=== PATIENT | female | born 1980 | race African-American/Black ===

== ENCOUNTER → 2016-12-03 | Outpatient (CLI) | payer BC ==
[2016-12-03 14:43] LABS: ABSOLUTE BASOPHILS # (AUTO) 0.1 10^3/uL (0.0-0.2); ABSOLUTE EOSINOPHILS # (AUTO) 0.2 10^3/uL (0.0-0.6); ABSOLUTE LYMPHOCYTES (AUTO) 2.7 10^3/uL (0.5-4.7); ABSOLUTE MONOCYTES (AUTO) 0.4 10^3/uL (0.1-1.4); ABSOLUTE NEUT (AUTO) 2.9 10^3/uL (1.7-8.2); BASOPHILS % (AUTO) 1.3 % (0-2); EOSINOPHILS % (AUTO) 2.6 % (0-6); HEMATOCRIT 39.1 % (36.0-47.0); HEMOGLOBIN 12.8 g/dL (12.0-15.5); HGB HCT DIFFERENCE -0.7; LYMPHOCYTES % (AUTO) 43.6 % (13-45); MEAN CORPUSCULAR HGB CONC 32.7 g/dL (32.0-36.0); MEAN CORPUSCULAR VOLUME 86 fl (80-97); MONOCYTES % (AUTO) 5.9 % (3-13); RED BLOOD COUNT 4.55 10^6/uL (3.72-5.28); SEGMENTED NEUTROPHILS % (AUTO) 46.6 % (42-78); WHITE BLOOD COUNT 6.2 10^3/uL (4.0-10.5)
[2016-12-03 15:01] LABS: ALANINE AMINOTRANSFERASE 36 U/L (9-52); ALBUMIN 4.2 g/dL (3.5-5.0); ALKALINE PHOSPHATASE 74 U/L (38-126); AMYLASE 72 U/L (30-110); ANION GAP 12 (5-19); ASPARTATE AMINO TRANSFERASE 20 U/L (14-36); BILIRUBIN,DIRECT 0.3 mg/dL (0.0-0.4); BILIRUBIN,TOTAL 0.7 mg/dL (0.2-1.3); BLOOD UREA NITROGEN 11 mg/dL (7-20); CALCIUM 9.3 mg/dL (8.4-10.2); CARBON DIOXIDE 21 mmol/L (22-30); CHLORIDE 105 mmol/L (98-107); CREATININE RESULT 0.86 mg/dL (0.52-1.25); GLUCOSE 186 mg/dL (75-110); LIPASE 120.7 U/L (23-300); POTASSIUM 4.4 mmol/L (3.6-5.0); SODIUM 138.4 mmol/L (137-145); TOTAL PROTEIN 7.5 g/dL (6.3-8.2)
== END ==
LOC: LAB 14:28
PROVIDERS: ATTEND Physician Assistant
DX: R53.83 Other fatigue (principal)
CPT/HCPCS: 36415; 80053; 82150; 83690; 85025

== ENCOUNTER 2017-05-31 06:01 | Emergency (ER) | payer OTHER, BC ==
--- NOTE | 2017-05-31 06:35 | ER Document Report ---
ED General - General Chief Complaint: Electrocution Stated Complaint: ELECTRICAL SHOCK TO EAR/CHEST PAIN Time Seen by Provider: 05/31/17 06:15 TRAVEL OUTSIDE OF THE [place] IN LAST 30 DAYS: No - HPI Patient complains to provider of: Electric shock Notes: Patient coming in for evaluation of an electric shock to her right ear. 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 Patient states that in the morning she did have some chest pressure or tightness with palpitations. Patient currently is asymptomatic. Patient states she did not want to come to the ER however her place of employment made her. Denies any medical issues or allergies. Denies any recent travel patient denies any complaints at this time. Resting comfortably no signs of any obvious distress upon my evaluation. - Related Data Allergies/Adverse Reactions: Penicillins Allergy (Verified 05/31/17 06:02) promethazine [From Phenergan] Allergy (Verified 05/31/17 06:02) Home Medications: Current Home Medications Metformin HCl [Metformin HCl ER] 500 mg PO BID 05/31/17 [History] Past Medical History - Social History Smoking Status: Never Smoker Family History: Reviewed & Not Pertinent Patient has suicidal ideation: No Patient has homicidal ideation: No Endocrine Medical History: Reports: Hx Diabetes Mellitus Type 2 Renal/ Medical History: Denies: Hx Peritoneal Dialysis Past Surgical History: Reports: Hx Section - x4, Hx Orthopedic Surgery - R wrist Review of Systems - Review of Systems Constitutional: No symptoms reported EENT: Other - Shock to the right ear Cardiovascular: No symptoms reported Respiratory: No symptoms reported Gastrointestinal: No symptoms reported Genitourinary: No symptoms reported Female Genitourinary: No symptoms reported Musculoskeletal: No symptoms reported Skin: No symptoms reported Hematologic/Lymphatic: No symptoms reported Neurological/Psychological: No symptoms reported Physical Exam - Vital signs Vitals: Pulse Resp BP Pulse Ox 79 18 134/79 H 98 05/31/17 06:02 05/31/17 06:02 05/31/17 06:02 05/31/17 06:02 Interpretation: Normal - General General appearance: Appears well, Alert - HEENT Head: Normocephalic, Atraumatic Eyes: Normal Conjunctiva: Normal Cornea: Normal Eyelashes: Normal Pupils: PERRL Ears: Normal External canal: Normal Tympanic membrane: Normal Sinus: Normal Nasal: Normal Pharynx: Normal Neck: Normal - Respiratory Respiratory status: No respiratory distress Chest status: Nontender Breath sounds: Normal Chest palpation: Normal - Cardiovascular Rhythm: Regular Heart sounds: Normal auscultation Murmur: No - Abdominal Inspection: Normal Distension: No distension Bowel sounds: Normal Tenderness: Nontender Organomegaly: No organomegaly - Back Back: Normal, Nontender - Extremities General upper extremity: Normal inspection, Nontender, Normal color, Normal ROM , Normal temperature General lower extremity: Normal inspection, Nontender, Normal color, Normal ROM , Normal temperature, Normal weight bearing. No: Frances's sign - Neurological Neuro grossly intact: Yes Cognition: Normal Orientation: AAOx4 Waterproof Coma Scale Eye Opening: Spontaneous Waterproof Coma Scale Verbal: Oriented Waterproof Coma Scale Motor: Obeys Commands Prabha Coma Scale Total: 15 Speech: Normal Motor strength normal: LUE, RUE, LLE, RLE Sensory: Normal - Psychological Associated symptoms: Normal affect, Normal mood - Skin Skin Temperature: Warm Skin Moisture: Dry Skin Color: Normal Course - Re-evaluation Re-evalutation: 05/31/17 09:48 Patient was evaluated here in ER no critical findings on examination will be discharged home. - Vital Signs Vital signs: Temp Pulse Resp BP Pulse Ox 82 16 128/77 H 99 05/31/17 06:41 05/31/17 06:41 05/31/17 06:41 05/31/17 06:41 Discharge - Discharge Clinical Impression: Normal physical exam Condition: Good Disposition: HOME, SELF-CARE Instructions: Normal Exam and Workup ([facility]) Additional Instructions: Your physical examination does not reveal any significant pathology. Examination of the ear does not reveal any burn brito or any signs of significant logical shock. Your EKG is also normal. Was seen to your heart sounds your heart and lung gilbert are all normal. Please take your equipment at your workstation. SI did also he may return to work at your earliest convenience. Return to the ER if symptoms worsen. Forms: Return to Work
[2017-05-31 06:41] VITALS: BP 128/77
--- NOTE | 2017-05-31 09:38 | EKG REPORT ---
SEVERITY:- BORDERLINE ECG - SINUS RHYTHM BORDERLINE T WAVE ABNORMALITIES : Confirmed by: Jarret Salazar 31-May-2017 09:37:37
== END 2017-05-31 06:41 | disposition home or self-care (01) ==
LOC: ER 06:01
DX: R07.9 Chest pain, unspecified (principal); W86.8XXA Exposure to other electric current, initial encounter; E11.9 Type 2 diabetes mellitus without complications; Z88.0 Allergy status to penicillin
CPT/HCPCS: 93005; 93010; 99283

== ENCOUNTER 2017-08-04 16:54 | Emergency (ER) | payer BC, OTHER ==
[2017-08-04] MEDS ORDERED: ASPIRIN 81 MG TABLET, CHEWABLE PO ONE (17:27)
--- NOTE | 2017-08-04 17:29 | ER Document Report ---
ED Medical Screen (RME) - General Chief Complaint: Chest Pain Stated Complaint: CHEST PAIN Time Seen by Provider: 08/04/17 17:20 Notes: RME DISCLOSURE I have seen this patient as part of a Rapid Medical Evaluation and, if applicable, placed any initially appropriate orders. The patient will be seen and fully evaluated, including a full history and physical exam, by a provider ( in Main ED or Fast Track) when a room becomes available. 37-year-old female here with complaints of left-sided chest pain radiating up to the left shoulder and down the left arm with shortness of breath that started earlier this afternoon. The symptoms are worse with exertion, particularly walking, but not worse with breathing. She has not had any diaphoresis lightheadedness nausea vomiting. She has not taken anything for the symptoms. No prior history of [place]. EXAM Clear to auscultation bilaterally Regular rate and rhythm TRAVEL OUTSIDE OF THE [place] IN LAST 30 DAYS: No - Related Data Allergies/Adverse Reactions: Penicillins Allergy (Verified 08/04/17 16:56) promethazine [From Phenergan] Allergy (Verified 08/04/17 16:56) Past Medical History - Social History Frequency of alcohol use: None Drug Abuse: None Endocrine Medical History: Reports: Hx Diabetes Mellitus Type 2 Renal/ Medical History: Denies: Hx Peritoneal Dialysis Past Surgical History: Reports: Hx Abdominal Surgery - Gastric sleeve, Hx Section - x4, Hx Orthopedic Surgery - R wrist Physical Exam - Vital signs Vitals: Temp Pulse BP Pulse Ox 99.1 F 72 136/75 H 100 08/04/17 17:07 08/04/17 17:07 08/04/17 17:07 08/04/17 17:07 Course - Vital Signs Vital signs: Temp Pulse Resp BP Pulse Ox 99.1 F 72 136/75 H 100 08/04/17 17:07 08/04/17 17:07 08/04/17 17:07 08/04/17 17:07
[2017-08-04 18:59] LABS: ABSOLUTE BASOPHILS # (AUTO) 0.1 10^3/uL (0.0-0.2); ABSOLUTE EOSINOPHILS # (AUTO) 0.1 10^3/uL (0.0-0.6); ABSOLUTE MONOCYTES (AUTO) 0.5 10^3/uL (0.1-1.4); ABSOLUTE NEUT (AUTO) 4.5 10^3/uL (1.7-8.2); BASOPHILS % (AUTO) 0.9 % (0-2); EOSINOPHILS % (AUTO) 1.4 % (0-6); HEMATOCRIT 41.3 % (36.0-47.0); HEMOGLOBIN 13.9 g/dL (12.0-15.5); LYMPHOCYTES % (AUTO) 49.1 % (13-45); MEAN CORPUSCULAR HEMOGLOBIN 28.9 pg (27.0-33.4); MEAN CORPUSCULAR HGB CONC 33.7 g/dL (32.0-36.0); MEAN CORPUSCULAR VOLUME 86 fl (80-97); MONOCYTES % (AUTO) 4.5 % (3-13); RED CELL DISTRIBUTION WIDTH 15.4 % (11.5-14.0); SEGMENTED NEUTROPHILS % (AUTO) 44.1 % (42-78); TOTAL CELLS COUNTED % (AUTO) 100 %; WHITE BLOOD COUNT 10.1 10^3/uL (4.0-10.5)
--- NOTE | 2017-08-04 19:01 | RADIOLOGY REPORT (SQ) ---
EXAM DESCRIPTION: CHEST PA/LAT COMPLETED DATE/TIME: 08/04/2017 6:18 pm REASON FOR STUDY: CP SOB COMPARISON: None. EXAM PARAMETERS: NUMBER OF VIEWS: two views TECHNIQUE: Digital Frontal and Lateral radiographic views of the chest acquired. RADIATION DOSE: NA LIMITATIONS: none FINDINGS: LUNGS AND PLEURA: No opacities, masses or pneumothorax. No pleural effusion. MEDIASTINUM AND HILAR STRUCTURES: No masses or contour abnormalities. HEART AND VASCULAR STRUCTURES: Heart normal size. No evidence for failure. BONES: No acute findings. HARDWARE: None in the chest. OTHER: No other significant finding. IMPRESSION: NO SIGNIFICANT RADIOGRAPHIC FINDING IN THE CHEST. TECHNICAL DOCUMENTATION: JOB ID: [id number] [employer]- All Rights Reserved Reading location - IP/workstation name: [email or web address]
[2017-08-04 19:06] VITALS: BP 155/97
[2017-08-04 19:22] LABS: PLATELET COUNT 217 10^3/uL (150-450)
[2017-08-04 19:54] LABS: ANION GAP 12 (5-19); BLOOD UREA NITROGEN 16 mg/dL (7-20); CALCIUM 10.3 mg/dL (8.4-10.2); CARBON DIOXIDE 25 mmol/L (22-30); CHLORIDE 102 mmol/L (98-107); GLUCOSE 96 mg/dL (75-110); POTASSIUM 4.9 mmol/L (3.6-5.0); SODIUM 138.8 mmol/L (137-145)
--- NOTE | 2017-08-04 20:00 | ER Document Report ---
ED General - General Chief Complaint: Chest Pain Stated Complaint: CHEST PAIN Time Seen by Provider: 08/04/17 17:20 Mode of Arrival: Ambulatory Information source: Patient Notes: 37-year-old female history of mitral valve prolapse presents with complaints of extra beats and palpitations. Patient notes symptoms started after working out yesterday at the gym. Patient denies any actual chest pain. TRAVEL OUTSIDE OF THE [place] IN LAST 30 DAYS: No - HPI Onset: This morning Onset/Duration: Sudden Quality of pain: No pain Severity: Mild Pain Level: Denies Associated symptoms: Other Exacerbated by: Denies Relieved by: Denies Similar symptoms previously: No Recently seen / treated by doctor: No - Related Data Allergies/Adverse Reactions: Penicillins Allergy (Verified 08/04/17 16:56) promethazine [From Phenergan] Allergy (Verified 08/04/17 16:56) Past Medical History - Social History Smoking Status: Never Smoker Cigarette use (# per day): No Chew tobacco use (# tins/day): No Smoking Education Provided: No Frequency of alcohol use: None Drug Abuse: None Family History: Reviewed & Not Pertinent Patient has suicidal ideation: No Patient has homicidal ideation: No Endocrine Medical History: Reports: Hx Diabetes Mellitus Type 2 Renal/ Medical History: Denies: Hx Peritoneal Dialysis Past Surgical History: Reports: Hx Abdominal Surgery - Gastric sleeve, Hx Section - x4, Hx Orthopedic Surgery - R wrist Review of Systems - Review of Systems Notes: REVIEW OF SYSTEMS: CONSTITUTIONAL : Denies fever, chills, or sweats. Denies recent illness. EENT: Denies eye, ear, throat, or mouth pain or symptoms. Denies nasal or sinus congestion or discharge. Denies throat, tongue, or mouth swelling or difficulty swallowing. CARDIOVASCULAR: Admits to palpitations RESPIRATORY: Denies cough, cold, or chest congestion. Denies shortness of breath, difficulty breathing, or wheezing. GASTROINTESTINAL: Denies abdominal pain or distention. Denies nausea, vomiting , or diarrhea. Denies blood in vomitus, stools, or per rectum. Denies black, tarry stools. Denies constipation. GENITOURINARY: Denies difficulty urinating, painful urination, burning, frequency, blood in urine, or discharge. FEMALE GENITOURINARY: Denies vaginal bleeding, heavy or abnormal periods, irregular periods. Denies vaginal discharge or odor. MUSCULOSKELETAL: Denies back or neck pain or stiffness. Denies joint pain or swelling. SKIN: Denies rash, lesions or sores. HEMATOLOGIC : Denies easy bruising or bleeding. LYMPHATIC: Denies swollen, enlarged glands. NEUROLOGICAL: Denies confusion or altered mental status. Denies passing out or loss of consciousness. Denies dizziness or lightheadedness. Denies headache. Denies weakness or paralysis or loss of use of either side. Denies problems with gait or speech. Denies sensory loss, numbness, or tingling. Denies seizures. PSYCHIATRIC: Denies anxiety or stress. Denies depression, suicidal ideation, or homicidal ideation. ALL OTHER SYSTEMS REVIEWED AND NEGATIVE. PHYSICAL EXAMINATION: GENERAL: Well-appearing, well-nourished and in no acute distress. HEAD: Atraumatic, normocephalic. EYES: Pupils equal round and reactive to light, extraocular movements intact, conjunctiva are normal. ENT: Nares patent, oropharynx clear without exudates. Moist mucous membranes. NECK: Normal range of motion, supple without lymphadenopathy LUNGS: Breath sounds clear to auscultation bilaterally and equal. No wheezes rales or rhonchi. HEART: Regular rate and rhythm without murmurs ABDOMEN: Soft, nontender, nondistended abdomen. No guarding, no rebound. No masses appreciated. Female : deferred Musculoskeletal: Normal range of motion, no pitting or edema. No cyanosis. NEUROLOGICAL: Cranial nerves grossly intact. Normal speech, normal gait. Normal sensory, motor exams PSYCH: Normal mood, normal affect. SKIN: Warm, Dry, normal turgor, no rashes or lesions noted. Dictation was performed using [employer] voice recognition software Physical Exam - Vital signs Vitals: Temp Pulse BP Pulse Ox 99.1 F 72 136/75 H 100 08/04/17 17:07 08/04/17 17:07 08/04/17 17:07 08/04/17 17:07 Course - Re-evaluation Re-evalutation: 08/04/17 23:45 PVCs are noted on cardiac monitoring, patient notes she feels exactly when the monitor shows it, therefore I have very low suspicion for any life-threatening issues I believe the mitral valve prolapse due to the exercise has caused the PVCs to come on, patient will be given cardiology follow-up and is otherwise well-appearing in no distress, lab work noted no significant abnormality and patient's vital signs are stable. She is discharged home with very close follow -up patient states she understands will return if there are any other concerns After performing a Medical Screening Examination, I estimate there is LOW risk for RUPTURED ESOPHAGUS, PNEUMOTHORAX, PULMONARY EMBOLISM, ACUTE CORONARY SYNDROME, OR THORACIC AORTIC DISSECTION, thus I consider the discharge disposition reasonable. I have reevaluated this patient multiple times and no significant life threatening changes are noted. The patient and I have discussed the diagnosis and risks, and we agree with discharging home with close follow-up. We also discussed returning to the Emergency Department immediately if new or worsening symptoms occur. We have discussed the symptoms which are most concerning (e.g., bloody sputum, worsening pain or shortness of breath) that necessitate immediate return. - Vital Signs Vital signs: Temp Pulse Resp BP Pulse Ox 99.1 F 72 14 155/97 H 100 08/04/17 17:07 08/04/17 17:07 08/04/17 19:04 08/04/17 19:04 08/04/17 19:04 - Laboratory Result Diagrams: 08/04/17 18:10 08/04/17 18:10 Laboratory results interpreted by me: 08/04/17 08/04/17 18:10 18:10 RDW 15.4 H Lymphocytes % 49.1 H Absolute Lymphocytes 5.0 H Calcium 10.3 H - Diagnostic Test Radiology reviewed: Image reviewed, Reports reviewed - EKG Interpretation by Oh EKG shows normal: Sinus rhythm, [place], Intervals, QRS Complexes Rhythm: Other - PVC Discharge - Discharge Clinical Impression: PVC (premature ventricular contraction), Mitral valve prolapse Condition: Stable Disposition: HOME, SELF-CARE Instructions: PVCs ([facility]) Referrals: DEBORA NUÑEZ MD [ACTIVE STAFF] - Follow up tomorrow
--- NOTE | 2017-08-04 22:07 | EKG REPORT ---
SEVERITY:- NORMAL ECG - SINUS RHYTHM : Confirmed by: Jarret Salazar 04-Aug-2017 22:06:05
== END 2017-08-04 21:30 | disposition home or self-care (01) ==
LOC: ER 16:54
DX: I49.3 Ventricular premature depolarization (principal); I34.1 Nonrheumatic mitral (valve) prolapse; E11.9 Type 2 diabetes mellitus without complications; Z98.84 Bariatric surgery status; Z88.0 Allergy status to penicillin; Z88.8 Allergy status to other drugs, medicaments and biological substances
CPT/HCPCS: 36415; 71046; 80048; 83735; 84484; 85025; 93005; 93010; 99285

== ENCOUNTER 2018-05-02 17:25 | Emergency (ER) | payer BC ==
[2018-05-02] MEDS ORDERED: IPRATROPIUM/ALBUTEROL 0.5-2.5 MG/3 ML AMPUL NEB ONE (18:02)
--- NOTE | 2018-05-02 18:07 | ER Document Report ---
ED Medical Screen (RME) - General Chief Complaint: Chest Wall Pain Stated Complaint: SHORT OF BREATH/CHEST PAIN Time Seen by Provider: 05/02/18 17:57 Mode of Arrival: Ambulatory Information source: Patient, [facility] Records Notes: 38-year-old female presents with complaint of cough, shortness of breath. Patient states she has had a dry cough for 4 weeks. She states her shortness of breath started 1 week ago. She was seen by her primary care physician and given a nebulizer treatment which she states helped improve her shortness of breath but her physician was hesitant to send her home with albuterol because of her gastric sleeve per the patient. Patient was prescribed doxycycline but states that she has vomited every dose that she has attempted to take. She denies any fever, chills, history of PE, DVT. I have greeted and performed a rapid initial assessment of this patient. A comprehensive ED assessment and evaluation of the patient, analysis of test results and completion of medical decision making process we will be contacted by additional ED providers. PHYSICAL EXAMINATION: Vital signs reviewed GENERAL: Well-appearing, well-nourished and in no acute distress. LUNGS: Inspiratory wheezing bilaterally Musculoskeletal: Normal range of motion NEUROLOGICAL: Normal speech, normal gait. PSYCH: Normal mood, normal affect. SKIN: Warm, Dry, normal turgor, no rashes or lesions noted. TRAVEL OUTSIDE OF THE [place] IN LAST 30 DAYS: No - HPI Onset: Other Onset/Duration: Persistent Associated Symptoms: Cough (nonproductive), Shortness of breath. denies: Chest pain, Fever Exacerbated by: Coughing Relieved by: Denies Similar symptoms previously: Yes Recently seen / treated by doctor: Yes - Related Data Smoking: Quit greater than 1 year Frequency of alcohol use: None Drug Abuse: None Allergies/Adverse Reactions: Penicillins Allergy (Verified 05/02/18 17:26) promethazine [From Phenergan] Allergy (Verified 05/02/18 17:26) Past Medical History Endocrine Medical History: Reports: Hx Diabetes Mellitus Type 2 Renal/ Medical History: Denies: Hx Peritoneal Dialysis Past Surgical History: Reports: Hx Abdominal Surgery - Gastric sleeve, Hx Section - x4, Hx Orthopedic Surgery - R wrist Physical Exam - Vital signs Vitals: Temp Pulse Resp BP Pulse Ox 99.0 F 50 L 16 141/72 H 100 05/02/18 17:51 05/02/18 17:51 05/02/18 17:51 05/02/18 17:51 05/02/18 17:51 Course - Vital Signs Vital signs: Temp Pulse Resp BP Pulse Ox 99.0 F 50 L 16 141/72 H 100 05/02/18 17:51 05/02/18 17:51 05/02/18 17:51 05/02/18 17:51 05/02/18 17:51
--- NOTE | 2018-05-02 18:57 | RADIOLOGY REPORT (SQ) ---
EXAM DESCRIPTION: CHEST 2 VIEWS COMPLETED DATE/TIME: 05/02/2018 6:16 pm REASON FOR STUDY: cough/sob COMPARISON: 08/04/2017 EXAM PARAMETERS: NUMBER OF VIEWS: two views TECHNIQUE: Digital Frontal and Lateral radiographic views of the chest acquired. RADIATION DOSE: NA LIMITATIONS: none FINDINGS: LUNGS AND PLEURA: No opacities, masses or pneumothorax. No pleural effusion. MEDIASTINUM AND HILAR STRUCTURES: No masses or contour abnormalities. HEART AND VASCULAR STRUCTURES: Heart normal size. No evidence for failure. BONES: No acute findings. HARDWARE: None in the chest. OTHER: No other significant finding. IMPRESSION: NO ACUTE RADIOGRAPHIC FINDING IN THE CHEST. TECHNICAL DOCUMENTATION: JOB ID: [id number] [employer]- All Rights Reserved Reading location - IP/workstation name: [email or web address]
[2018-05-02] MEDS ORDERED: ALBUTEROL SULFATE HFA (90 MCG/PUFF) 8 GM MDI (1 MDI/ER DISP) IH ONE (19:26)
[2018-05-02] MEDS ORDERED: DEXAMETHASONE SOD PHOS INJ 10 MG/1 ML VIAL IM ONE (19:26)
--- NOTE | 2018-05-02 19:26 | ER Document Report ---
ED General - General Chief Complaint: Chest Wall Pain Stated Complaint: SHORT OF BREATH/CHEST PAIN Time Seen by Provider: 05/02/18 17:57 Mode of Arrival: Ambulatory Notes: Patient is a 38-year-old female that comes emergency department chief complaint of wheezing, cough, chest congestion, upper respiratory congestion for the past 4 weeks. Former smoker. No history of asthma, she states that she went to primary care, was given a breathing treatment, states she is much better after this but she was not provided with any medications for home. She was placed on doxycycline but states that she vomited some of the doses because it makes her nauseated. No vomiting or abdominal pain noted separately. She reports chest pain along the side of her chest with cough, denies chest pain otherwise, denies dizziness, denies passing out. Past medical history of gastric sleeve. TRAVEL OUTSIDE OF THE [place] IN LAST 30 DAYS: No - Related Data Allergies/Adverse Reactions: Penicillins Allergy (Verified 05/02/18 17:26) promethazine [From Phenergan] Allergy (Verified 05/02/18 17:26) Past Medical History - General Information source: Patient, [facility] Records - Social History Smoking Status: Former Smoker Frequency of alcohol use: None Drug Abuse: None Family History: Reviewed & Not Pertinent Patient has suicidal ideation: No Patient has homicidal ideation: No Endocrine Medical History: Reports: Hx Diabetes Mellitus Type 2 Renal/ Medical History: Reports: Hx Kidney Stones. Denies: Hx Peritoneal Dialysis Past Surgical History: Reports: Hx Abdominal Surgery - Gastric sleeve, Hx Section - x4, Hx Orthopedic Surgery - R wrist Review of Systems - Review of Systems Constitutional: No symptoms reported EENT: See HPI Cardiovascular: See HPI Respiratory: See HPI Gastrointestinal: No symptoms reported Genitourinary: No symptoms reported Female Genitourinary: No symptoms reported Musculoskeletal: No symptoms reported Skin: No symptoms reported Hematologic/Lymphatic: No symptoms reported Neurological/Psychological: No symptoms reported Physical Exam - Vital signs Vitals: Temp Pulse Resp BP Pulse Ox 99.0 F 50 L 16 141/72 H 100 05/02/18 17:51 05/02/18 17:51 05/02/18 17:51 05/02/18 17:51 05/02/18 17:51 - Notes Notes: GENERAL: Alert, interacts well. No acute distress. HEAD: Normocephalic, atraumatic. EYES: Pupils equal, round, and reactive to light. Extraocular movements intact. ENT: Oral mucosa moist, tongue midline. Oropharynx unremarkable. Airway patent. Mild sinus congestion, no nasal septal hematoma, TM's intact. NECK: Full range of motion. Supple. Trachea midline. LUNGS: Clear to auscultation bilaterally, no wheezes, rales, or rhonchi. No respiratory distress. HEART: Regular rate and rhythm. No murmur ABDOMEN: Soft, non-tender. Non-distended. Bowel sounds present in all 4 quadrants. GENITOURINARY: Deferred EXTREMITIES: Moves all 4 extremities spontaneously. No edema, normal radial and dorsalis pedis pulses bilaterally. No cyanosis. BACK: no cervical, thoracic, lumbar midline tenderness. No saddle anesthesia, normal distal neurovascular exam. NEUROLOGICAL: Alert and oriented x3. Normal speech. [cranial nerves II through XII grossly intact]. PSYCH: Normal affect, normal mood. SKIN: Warm, dry, normal turgor. No rashes or lesions noted. Course - Re-evaluation Re-evalutation: Patient reportedly was wheezing initially, after DuoNeb she is totally clear, she states she feels much better after DuoNeb. She denies history of asthma, former smoker. No tachypnea, hypoxia. Chest x-ray unremarkable. EKG unremarkable. Patient with described symptoms consistent with upper respiratory infection and persistent bronchitis symptoms. Patient completely a symptomatically my evaluation other than minimal congestion. Very low suspicion of ACS, PE, dissection. Discussed with patient. Decision was made to provide with dexamethasone treatment here, albuterol at home, discussed follow-up, discussed return precautions. Patient states understanding and agreement. - Vital Signs Vital signs: Temp Pulse Resp BP Pulse Ox 98.3 F 100 18 135/97 H 100 05/02/18 19:45 05/02/18 19:45 05/02/18 19:45 05/02/18 19:45 05/02/18 19:45 Discharge - Discharge Clinical Impression: Cough, Wheezing Upper respiratory infection Qualifiers: URI type: unspecified URI Qualified Code(s): J06.9 - Acute upper respiratory infection, unspecified Condition: Stable Disposition: HOME, SELF-CARE Additional Instructions: Your chest x-ray and EKG do not show concerning a normality. Your examination and symptoms are most consistent with a recovering bronchitis. You have been treated with dexamethasone. You can take the albuterol inhaler every 4-6 hours as needed for wheezing/cough. You can take [id number] chest decongestant such as Mucinex. Follow-up with primary care. Return for any concerning or worsening symptoms including difficulty breathing, spiking fever, passing out, or any other concerning or worsening symptoms. Prescriptions: Albuterol Sulfate [Proair HFA Inhalation Aerosol 8.5 gm MDI] 2 puff IH Q4H PRN # 1 mdi PRN Reason: Forms: Return to Work Referrals: LEODAN HAHN MD [Primary Care Provider] - Follow up as needed
[2018-05-02 19:46] VITALS: BP 135/97
--- NOTE | 2018-05-02 20:13 | EKG REPORT ---
SEVERITY:- OTHERWISE NORMAL ECG - SINUS ARRHYTHMIA, RATE 46-59 : Confirmed by: Jarret Salazar 02-May-2018 20:12:19
== END 2018-05-02 20:13 | disposition home or self-care (01) ==
LOC: ER 17:25
DX: J06.9 Acute upper respiratory infection, unspecified (principal); R05 Cough; R06.2 Wheezing; R09.89 Other specified symptoms and signs involving the circulatory and respiratory systems; R07.89 Other chest pain; E11.9 Type 2 diabetes mellitus without complications; Z87.891 Personal history of nicotine dependence; Z88.0 Allergy status to penicillin; Z88.8 Allergy status to other drugs, medicaments and biological substances; Z98.84 Bariatric surgery status; R09.81 Nasal congestion
CPT/HCPCS: 93005; 94640; 99285; 96372; 71046; 93010; J1100; J3490; J7620

== ENCOUNTER → 2018-05-31 | Outpatient (CLI) | payer BC ==
--- NOTE | 2018-05-31 19:07 | DRAGON STRESS TEST REPORT ---
Exercise EKG treadmill Cardiolite stress test using SPECT. Data procedure: 05/31/2018. ORDERING PHYSICIAN: Dr. James Olivera. PATIENT STATUS: Out Patient. Indication:: Atrial Flutter coronary risk factors:. Diabetes mellitus, hypertension, and family history of coronary artery disease. Significant physical findings prior to stress testing show a blood pressure of 138/82, and a heart rate of 59 beats per minute. Auscultation of the heart shows normal S1 and S2. No S3 or S4 gallops. Systolic murmur in the left sternal border and apex. Lungs are clear to auscultation and percussion. Resting 12-lead EKG:. Sinus Rhythm. Within normal limits. Procedure: The patient was excised on a standard Parvez protocol. . The patient walked a total of 9 minutes and 22 seconds on this protocol and reached a peak heart rate of 169 beats per minute, which is 93% of maximum predicted heart rate for age. This is at a workload of 10.10 METS. The test was stopped because of meant of target heart rate. The patient described symptoms of chest pain/discomfort. Exercise EKG's show: No EKG evidence of exercise-induced ischemia. Arrhythmias seen: None. There was no recurrence of atrial flutter. The blood pressure response was normal at peak exercise the blood pressure was 175/71 millimeters of Hg. The double product was 28.7 K. Summary of findings and interpretation: 1. No chest pain or chest discomfort symptoms reproduced. 2. [No] EKG evidence of ischemia in the form of ST segment depression. 3. Normal blood pressure response. 4. No arrhythmias seen. There was no recurrence of atrial flutter. 5. Good exercise tolerance, good aerobic capacity. Diagnostic treadmill stress test negative for ischemia by EKG criteria. Recommendations: Correlate with nuclear Cardiolite images. Nuclear data: At rest the patient was given 13.00 millicuries of technetium 99 sestamibi, and as per protocol rest none gated SPECT images were obtained. The patient was exercised on a treadmill [see exercise physiology]. One minute prior to termination of exercise, 36.1 millicuries of technetium and there sestamibi was injected intravenously. As per protocol stress gated images were obtained. Impression: Review of images show that there is contamination artifact. In spite of this all segments of the myocardium had normal perfusion at rest, and normal perfusion post exercise. All segments of the myocardium had normal motion, contraction, and thickening by gated study. T. I D. ratio was 0.87. There was no transient ischemic dilatation of the left ventricle.. The computer read rest and stress left ventricular ejection fractions were 57 %, and 62 % respectively. Visually both the ejection fractions were normal in excess of 55%. Conclusions: 1. No clinical symptoms of exercise-induced myocardial ischemia at a peak heart rate of 169 beats per minute, patient having achieved 93 % of maximum predicted heart rate for age, at a workload of 10.10 METS. 2. No EKG evidence of exercise-induced myocardial ischemia. 3. No arrhythmias seen. There was no recurrence of atrial flutter. 4.No scintigraphic evidence of exercise-induced myocardial ischemia. 5.No scintigraphic evidence of myocardial infarction/scar. Recommendations Aggressive coronary risk factor modification, and treatment of underlying comorbidities. MTDD
== END ==
LOC: RAD 07:23
PROVIDERS: ATTEND Internal Medicine Cardiovascular Disease
DX: I48.92 Unspecified atrial flutter (principal)
CPT/HCPCS: 93017; 78452; A9500; Q9969

== ENCOUNTER 2018-09-12 21:24 | Emergency (ER) | payer BC ==
[2018-09-12] MEDS ORDERED: NORMAL SALINE 1000 ML 1,000 ML IV ONE (23:27)
[2018-09-12 23:41] LABS: ABSOLUTE BASOPHILS # (AUTO) 0.1 10^3/uL (0.0-0.2); ABSOLUTE LYMPHOCYTES (AUTO) 3.5 10^3/uL (0.5-4.7); ABSOLUTE MONOCYTES (AUTO) 0.4 10^3/uL (0.1-1.4); ABSOLUTE NEUT (AUTO) 2.8 10^3/uL (1.7-8.2); BASOPHILS % (AUTO) 1.1 % (0-2); EOSINOPHILS % (AUTO) 0.4 % (0-6); HEMATOCRIT 37.5 % (36.0-47.0); HEMOGLOBIN 12.9 g/dL (12.0-15.5); LYMPHOCYTES % (AUTO) 51.6 % (13-45); MEAN CORPUSCULAR HEMOGLOBIN 30.7 pg (27.0-33.4); MEAN CORPUSCULAR HGB CONC 34.3 g/dL (32.0-36.0); MEAN CORPUSCULAR VOLUME 90 fl (80-97); MONOCYTES % (AUTO) 5.8 % (3-13); PLATELET COUNT 251 10^3/uL (150-450); SEGMENTED NEUTROPHILS % (AUTO) 41.1 % (42-78); TOTAL CELLS COUNTED % (AUTO) 100 %; WHITE BLOOD COUNT 6.8 10^3/uL (4.0-10.5)
[2018-09-13 00:01] LABS: ANION GAP 6 (5-19); BLOOD UREA NITROGEN 15 mg/dL (7-20); CALCIUM 9.2 mg/dL (8.4-10.2); CARBON DIOXIDE 25 mmol/L (22-30); CHLORIDE 107 mmol/L (98-107); CREATINE KINASE 81 U/L (30-135); GLUCOSE 85 mg/dL (75-110); SODIUM 137.6 mmol/L (137-145)
[2018-09-13 00:27] LABS: APPEARANCE,URINE SLIGHTLY-CLOUDY; BILIRUBIN,URINE NEGATIVE (NEGATIVE); COLOR,URINE YELLOW; GLUCOSE, URINE NEGATIVE (NEGATIVE); KETONES,URINE NEGATIVE (NEGATIVE); LEUKOCYTE ESTERASE,URINE TRACE (NEGATIVE); NITRITE,URINE NEGATIVE (NEGATIVE); PROTEIN,URINE NEGATIVE (NEGATIVE); URINE SPECIFIC GRAVITY 1.029
--- NOTE | 2018-09-13 00:50 | ER Document Report ---
ED General - General Chief Complaint: Chest Pain Stated Complaint: BACK PAIN Time Seen by Provider: 09/12/18 22:50 Primary Care Provider: LEODAN HAHN MD [Primary Care Provider] - 09/14/18 Notes: Patient is a very pleasant 38-year-old female who was told to come in by her doctor because she had reported that she was having some dark urine some body aches. She is also on Latuda and had started this on . On Tuesday she was in the heat and walking around all day and doing some sightseeing. She said shortly after that she start having her symptoms. She does have a history of A. fib. She is on Eliquis as well as metoprolol. She did have kidney failure once in 2012 and this was related to preeclampsia as well as also having a kidney stone that was obstructing her kidneys. She had been on dialysis for a few months but then was taken off dialysis and her kidney function is been normal ever since. No other complaints at this time. TRAVEL OUTSIDE OF THE [place] IN LAST 30 DAYS: No - Related Data Allergies/Adverse Reactions: Penicillins Allergy (Verified 09/12/18 21:36) promethazine [From Phenergan] Allergy (Verified 09/12/18 21:36) Past Medical History - Social History Smoking Status: Never Smoker Chew tobacco use (# tins/day): No Frequency of alcohol use: None Drug Abuse: None Family History: Reviewed & Not Pertinent Patient has suicidal ideation: No Patient has homicidal ideation: No Endocrine Medical History: Reports: Hx Diabetes Mellitus Type 2 Renal/ Medical History: Reports: Hx Kidney Stones. Denies: Hx Peritoneal Dialysis Past Surgical History: Reports: Hx Abdominal Surgery - Gastric sleeve, Hx Section - x4, Hx Orthopedic Surgery - R wrist Review of Systems - Review of Systems Notes: My Normal Review Basic REVIEW OF SYSTEMS: CONSTITUTIONAL : Denies fever, chills, or sweats. Denies recent illness. EENT: Denies eye, ear, throat, or mouth pain or symptoms. Denies nasal or sinus congestion. RESPIRATORY: Denies cough, cold, or chest congestion. Denies shortness of breath, difficulty breathing, or wheezing. GASTROINTESTINAL: Denies abdominal pain. Denies nausea, vomiting, or diarrhea. GENITOURINARY: Dark urine MUSCULOSKELETAL: Back pain SKIN: Denies rash or skin lesions. NEUROLOGICAL: Denies altered mental status or loss of consciousness. Denies headache. Denies weakness or paralysis or loss of use of either side. Denies problems with gait or speech. Denies sensory or motor loss. ALL OTHER SYSTEMS REVIEWED AND NEGATIVE. Physical Exam - Vital signs Vitals: Temp Pulse Resp BP Pulse Ox 98.1 F 49 L 16 171/85 H 100 09/12/18 22:14 09/12/18 22:14 09/12/18 22:14 09/12/18 22:14 09/12/18 22:14 - Notes Notes: General Appearance: Well nourished, alert, cooperative, no acute distress, no obvious discomfort. well Appearing. Vitals: reviewed, See vital signs table. Eyes: PERRL, EOMI, Conjuctiva clear Mouth: No decreasd moisture Lungs: No wheezing, No rales, No rhonci, No accessory muscle use, good air exchange bilaterally. Heart: Normal rate, Regular rythm, No murmur, no rub Back: No reproducible pain palpation Abdomen: Normal BS, soft, No rigidity, No abdominal tenderness, No guarding, no rebound, no abdominal masses, no organomegaly Extremities: good pulses in all extremities, no swelling or tenderness in the extremities, no edema. Skin: warm, dry, appropriate color, no rash Neuro: speech clear, oriented x 3, normal affect, responds appropriately to questions. Course - Re-evaluation Re-evalutation: 09/13/18 00:47 Patient's laboratory evaluation is unremarkable. She looks well. Vital signs are stable. I feel she is safe to be discharged home. Some clear fluid to displaying a role in symptoms she was having. I suspect that is more likely that her symptoms are related to the fact that she was out in the heat and walking all day Tuesday and she probably became dehydrated which is why her urine was dark and she was having some body aches. Currently she looks and feels much improved. At this time I feel she is safe to be discharged home. I informed her that she can continue take the Latuda; however, if she continues to feel as if she is getting body aches feel unwell after taking it then she can start to wean off the medication and inform her doctor of this. Patient encouraged to return to ER if she has worsening of her symptoms or feels unwell. Patient agrees with plan will be discharged home. Dictation of this chart was performed using voice recognition software; therefor e, there may be some unintended grammatical errors. - Vital Signs Vital signs: Temp Pulse Resp BP Pulse Ox 98.3 F 49 L 22 H 131/90 H 100 09/13/18 01:01 09/12/18 22:14 09/13/18 01:01 09/13/18 01:01 09/13/18 01:00 - Laboratory Result Diagrams: 09/12/18 23:10 09/12/18 23:10 Laboratory results interpreted by me: 09/12/18 09/12/18 23:10 23:10 Seg Neutrophils % 41.1 L Lymphocytes % 51.6 H Urine Urobilinogen 2.0 H Ur Leukocyte Esterase TRACE H Discharge - Discharge Clinical Impression: Dark urine Back pain Qualifiers: Back pain location: low back pain Chronicity: unspecified Back pain laterality: unspecified Sciatica presence: without sciatica Qualified Code(s): M54.5 - Low back pain Condition: Good Disposition: HOME, SELF-CARE Additional Instructions: I suspect that you may have been dehydrated from walking around all day in the sun. Please rest inside for the next 24 hours. Drink clear liquids. At this time he can continue to try to take Latuda. If your symptoms were to return after restarting Latuda then you should hold off on it and discuss this further with your doctor. Please return to ER if you have worsening recurrent symptoms, vomiting, worsening pain, or if you feel unwell. Referrals: LEODAN HAHN MD [Primary Care Provider] - 09/14/18
[2018-09-13 01:10] VITALS: BP 131/90
--- NOTE | 2018-09-13 08:31 | EKG REPORT ---
SEVERITY:- BORDERLINE ECG - SINUS RHYTHM BORDERLINE PROLONGED QT INTERVAL : Confirmed by: Le Davenport MD 13-Sep-2018 08:30:06
== END 2018-09-13 01:10 | disposition home or self-care (01) ==
LOC: ER 21:24
DX: M54.5 Low back pain (principal); R39.89 Other symptoms and signs involving the genitourinary system; E11.9 Type 2 diabetes mellitus without complications; I48.91 Unspecified atrial fibrillation; Z79.01 Long term (current) use of anticoagulants; Z79.899 Other long term (current) drug therapy; Z87.442 Personal history of urinary calculi; Z88.0 Allergy status to penicillin; Z88.8 Allergy status to other drugs, medicaments and biological substances
CPT/HCPCS: 93005; 99284; 96360; 36415; 82550; 85025; 80048; 81001; 93010; J7030